=== PATIENT | female | born 1955 | race Caucasian/White ===

== ENCOUNTER 2020-02-27 19:24 | Emergency (ER) | payer MEDICARE ==
[~2020-02-27] VITALS: Ht 172.7 cm; Wt 109.0 kg
[~2020-02-27 19:24] MED LIST: AMOXICILLIN500 MG PO; BYETTA5 SC; CLONAZEPAM1 MG PO; FLUOXETINE20 MG PO; JANUVIA100 MG PO; MEDDOSEPAK PO; METFORMIN500 MG PO; PROAIR HFA IN; SIMVASTATIN40 MG OR; VENLAFAXINE75 MG PO
[2020-02-27 20:07] LABS: HEMATOCRIT 46.2 % (37.0-47.0); HEMOGLOBIN 14.9 g/dl (12.0-16.0); IMMATURE GRANULOCYTES 0.3 % (0.0-5.0); MEAN CELL VOLUME 89.2 fL CALC (80.0-100.0); MEAN CORPUSCULAR HGB 28.8 pG CALC (26.0-32.0); MEAN CORPUSCULAR HGB CONC 32.3 g/dL CAL (32.0-36.0); NEUT# 9.08 thou/uL (2.00-7.15); RED BLOOD COUNT 5.18 mill/uL (4.20-5.60); RED CELL DISTRI WIDTH 12.9 % (11.5-15.5)
[2020-02-27] MEDS ORDERED: EFFEXOR25 M1 PO (20:17)
[2020-02-27] MEDS ORDERED: INVOKAMET PO (20:18)
[2020-02-27] MEDS ORDERED: CRESTOR20 MG PO (20:19)
[2020-02-27] MEDS ORDERED: OMEPRAZOLE DR20 MG (20:21)
[2020-02-27] MEDS ORDERED: INDERAL 40MG TA40 MG PO (20:21)
[2020-02-27 20:24] LABS: ALBUMIN 4.2 g/dL (3.2-5.0); ALKALINE PHOSPHATASE 92 u/l (38-126); ANION GAP 11 (6-22 (CALC)); BILIRUBIN, TOTAL 0.5 mg/dL (0.0-1.4); BUN 6 mg/dL (8-23); BUN/CREATININE RATIO 8 (12-20 (CALC)); CARBON DIOXIDE 27 mmol/l (22-30); CHLORIDE 100 mmol/l (95-108); CREATININE 0.7 mg/dL (0.5-1.0); GFR > 60 ML/MIN (>=60 (CALC)); GFR FOR AFR.AMER. > 60 ML/MIN (>=60 (CALC)); POTASSIUM 3.6 mmol/l (3.5-5.1); SGOT/AST 25 u/l (9-36); SODIUM 134 mmol/l (137-146); TOTAL PROTEIN 6.4 g/dL (6.3-8.2)
[2020-02-27 20:27] LABS: ACT PARTIAL THROMBO TIME 25.8 SECONDS (20.0-32.5); PROTHROMBIN TIME 9.8 SECONDS (9.0-12.5)
[2020-02-27 20:53] VITALS: BP 125/58
== END 2020-02-27 20:53 | disposition home or self-care (01) ==
LOC: ED 19:24
PROVIDERS: Family Medicine
DX: K91.840 Postprocedural hemorrhage of a digestive system organ or structure following a digestive system procedure (principal); E11.9 Type 2 diabetes mellitus without complications; Y83.8 Other surgical procedures as the cause of abnormal reaction of the patient, or of later complication, without mention of misadventure at the time of the procedure; Z86.010 Personal history of colon polyps

== ENCOUNTER 2022-12-13 06:56 | Day surgery (SDC) | payer MEDICARE ==
[~2022-12-13] VITALS: Ht 172.7 cm; Wt 111.1 kg
[~2022-12-13 06:56] MED LIST changes: +CRESTOR20 MG PO; +EFFEXOR25 M1 PO; +INDERAL 40MG TA40 MG PO; +INVOKAMET PO; +LANTUS SOL100 UNIT/M SC; +OMEPRAZOLE DR20 MG
[2022-12-13 08:55] VITALS: BP 150/75
== END 2022-12-13 09:15 | disposition home or self-care (01) ==
LOC: ORM 06:56
PROVIDERS: ATTEND Internal Medicine Gastroenterology
PROC: 0DBH8ZX Excision of Cecum, Via Natural or Artificial Opening Endoscopic, Diagnostic (ICD-10-PCS; principal; 2022-12-13)
PROC: 0DBM8ZX Excision of Descending Colon, Via Natural or Artificial Opening Endoscopic, Diagnostic (ICD-10-PCS; 2022-12-13)
DX: Z12.11 Encounter for screening for malignant neoplasm of colon (principal); D12.0 Benign neoplasm of cecum; K63.5 Polyp of colon; K57.30 Diverticulosis of large intestine without perforation or abscess without bleeding; K64.8 Other hemorrhoids; Z85.038 Personal history of other malignant neoplasm of large intestine; Z90.49 Acquired absence of other specified parts of digestive tract; Z92.21 Personal history of antineoplastic chemotherapy